=== PATIENT | female | born 1940 | race African-American/Black ===

== ENCOUNTER 2016-09-30 09:24 | Emergency (ER) | payer OTHER ==
[2016-09-30 09:36] VITALS: BMI 35.4
--- NOTE | 2016-09-30 09:53 | PDOC ---
History of Present Illness <Ronn Randle - Last Filed: 09/30/16 13:58> - General History Source: Patient, Family Exam Limitations: No Limitations - History of Present Illness Initial Comments: 09/30/16 11:36 The patient is a 75 year old female, with significant past medical history of diabetes, HTN, HLD, COPD, who presents today complaining of palpitations, difficulty breathing, and numbness and tingling in the bilateral arms and legs. This morning she experienced palpitations, dizziness, and difficulty breathing while sitting down for 15 to 20 minutes. This episode was witnessed by her daughter who states that it appeared as though she was trying to catch her breath. She also reports that she felt like there was a shaking inside her head. The patient had an MRI last year that resulted normal. She notes that her PCP is aware of these symptoms and is on Gabapentin for her headaches, and antibiotics for a sinus infection. The patient lives with the daughter. The patient has multiple past visits for bilateral arm tingling and numbness in the past; however she states that the symptoms have worsened since last night. Denies chest pain. Denies fever, chills, nausea, vomiting. Allergies: none reported Social Hx: No tobacco use. PCP- Dr. Janiya Raza Neurologist - Dr. Lorie Oilvas <Rishabh Ravissica - Last Filed: 09/30/16 14:10> - General Chief Complaint: Pain, Acute Stated Complaint: ABD PAIN, HEADACHE Time Seen by Provider: 09/30/16 09:52 Past History - Past Medical History Anemia: No Asthma: No Cancer: No Cardiac Disorders: Yes (palpatation 2011 negative) CVA: No COPD: Yes (bronchitis) CHF: No Dementia: No Diabetes: Yes (borderline) GI Disorders: No Disorders: No HTN: Yes Hypercholesterolemia: Yes Liver Disease: No Suicide Attempt (Hx): No Seizures: No Thyroid Disease: No - Surgical History Abdominal Surgery: Yes (06/2012 colectomy diverticilitis) Appendectomy: No Cardiac Surgery: No Cholecystectomy: No Lung Surgery: No Neurologic Surgery: No Orthopedic Surgery: No - Immunization History Immunization Up to Date: Yes (2013) - Psycho/Social/Smoking Cessation Hx Anxiety: No Suicidal Ideation: No Smoking Status: No Smoking History: Never smoked Have you smoked in the past 12 months: No Number of Cigarettes Smoked Daily: 0 Cigars Per Day: 0 Hx Alcohol Use: No Drug/Substance Use Hx: No Substance Use Type: None Hx Substance Use Treatment: No <Ronn Randle - Last Filed: 09/30/16 13:58> <Ping Ravi - Last Filed: 09/30/16 14:10> - Past Medical History Allergies/Adverse Reactions: Allergies Allergy/AdvReac Type Severity Reaction Status Date / Time No Known Drug Allergies Allergy Verified 09/30/16 09:35 Home Medications: Ambulatory Orders Amoxicillin/Potassium Clav [Amox-Clav 875-125 mg Tablet] 1 each PO BID 09/30/16 Furosemide [Lasix] 40 mg PO DAILY 09/30/16 Gabapentin [Neurontin] 100 mg PO BID 09/30/16 Lorazepam [Ativan] 0.5 mg PO TID #30 tablet MDD 3 09/30/16 Metoprolol Tartrate 50 mg PO BID 09/30/16 Review of Systems - Review of Systems Able to Perform ROS?: Yes Comments:: 09/30/16 11:36 GENERAL/CONSTITUTIONAL: No fever or chills. No weakness. HEAD, EYES, EARS, NOSE AND THROAT: No change in vision. No ear pain or discharge. No sore throat. CARDIOVASCULAR: +palpitations, difficulty breathing. No chest pain RESPIRATORY: No cough, wheezing, or hemoptysis. GASTROINTESTINAL: No nausea, vomiting, diarrhea or constipation. GENITOURINARY: No dysuria, frequency, or change in urination. MUSCULOSKELETAL: No joint or muscle swelling or pain. No neck or back pain. SKIN: No rash NEUROLOGIC: +numbness and tingling in the upper and lower extremities bilaterally.No headache, vertigo, loss of consciousness, or change in strength/ sensation. ENDOCRINE: No increased thirst. No abnormal weight change. HEMATOLOGIC/LYMPHATIC: No anemia, easy bleeding, or history of blood clots. ALLERGIC/IMMUNOLOGIC: No hives or skin allergy. <Ping Ravi - Last Filed: 09/30/16 14:10> *Physical Exam - Vital Signs Last Vital Signs Temp Pulse Resp BP Pulse Ox 98.0 F 83 18 149/66 95 09/30/16 09:32 09/30/16 09:32 09/30/16 09:32 09/30/16 09:32 09/30/16 09:32 <Ronn Randle - Last Filed: 09/30/16 13:58> - Vital Signs Last Vital Signs Temp Pulse Resp BP Pulse Ox 98.0 F 83 18 149/66 95 09/30/16 09:32 09/30/16 09:32 09/30/16 09:32 09/30/16 09:32 09/30/16 09:32 - Physical Exam Comments: 09/30/16 11:37 GENERAL: Awake, alert, and fully oriented, in no acute distress HEAD: No signs of trauma EYES: PERRLA, EOMI, sclera anicteric, conjunctiva clear ENT: Auricles normal inspection, hearing grossly normal, nares patent, oropharynx clear without exudates. Moist mucosa NECK: Normal ROM, supple, no lymphadenopathy, JVD, or masses LUNGS: Breath sounds equal, clear to auscultation bilaterally. No wheezes, and no crackles HEART: Regular rate and rhythm, normal S1 and S2, no murmurs, rubs or gallops ABDOMEN: Soft, nontender, normoactive bowel sounds. No guarding, no rebound. No masses EXTREMITIES: Mild pitting edema in her legs. Normal range of motion. No clubbing or cyanosis. No cords, erythema, or tenderness NEUROLOGICAL: Cranial nerves II through XII grossly intact. Normal speech, normal gait SKIN: Warm, Dry, normal turgor, no rashes or lesions noted. <Ping Ravi - Last Filed: 09/30/16 14:10> Heart Score/ECG Review #1 09/30/16 12:55 Sinus rhythm with 1st degree AV block Rate at 89 bpm <Ping Ravi - Last Filed: 09/30/16 14:10> ED Treatment Course - LABORATORY CBC & Chemistry Diagram: 09/30/16 10:20 09/30/16 10:20 <Ronn Randle - Last Filed: 09/30/16 13:58> - LABORATORY CBC & Chemistry Diagram: 09/30/16 10:20 09/30/16 10:20 - ADDITIONAL ORDERS Additional order review: Laboratory Results 09/30/16 10:20 Urine Color Colorless Urine Appearance Clear Urine pH 7.0 Urine Protein Negative Urine Glucose (UA) Negative Urine Ketones Negative Urine Blood Negative Urine Nitrite Negative Urine Bilirubin Negative Urine Urobilinogen Negative Ur Leukocyte Esterase Negative 09/30/16 10:20 RBC 4.66 MCV 90.2 MCHC 32.1 RDW 13.6 MPV 9.4 Neutrophils % 44.3 Lymphocytes % 39.3 Monocytes % 11.9 H Eosinophils % 3.8 Basophils % 0.7 - RADIOLOGY Radiograph Interpretation: 09/30/16 12:11 Chest Xray As reported by Dr. Juvencio Cristina Impression: no evidence of active pulmonary disease 09/30/16 14:02 US Bilateral legs As reviewed by Dr. Melba May Impression: No DVT seen in the lower extremities. Stevenson's cyst seen on the left. Chest CTA As reviewed by Dr. Mike Gee Impression: There is no evidence of a pulmonary embolus in the main pulmonary artery and its proximal branches, bilaterally. No enlarged mediastinal or hilar lymph nodes are identified. no acute lung disease present. Head CT without contrast as reviewed by Dr. Juvencio Cristina Impression: No evidence of acute intracranial hemorrhage, edema, midline shift, mass effect, or skull fracture.No CT evidence of acute territorial infarction. The visualized paranasal sinuses are not opacified. No evidence of otomastoiditis. <Ping Ravi - Last Filed: 09/30/16 14:10> *DC/Admit/Observation/Transfer - Discharge Dispostion Admit: No - Attestations Physician Attestion: 09/30/16 09:53 I, Dr. Ronn Randle, attest that this document has been prepared under my direction and personally reviewed by me in its entirety. I further attest, that it accurately reflects all work, treatment, procedures and medical decision -making performed by me. <Ronn Randle - Last Filed: 09/30/16 13:58> - Attestations Scribe Attestion: 09/30/16 11:39 Documentation prepared by HEVER Amado, acting as medical office assistant instructor for Ronn Randle DO. <Ping Ravi - Last Filed: 09/30/16 14:10> Diagnosis at time of Disposition: Palpitations, Leg swelling, Anxiety Abdominal pain Qualifiers: Abdominal location: generalized Qualified Code(s): R10.84 - Generalized abdominal pain Dyspnea Qualifiers: Dyspnea type: shortness of breath Qualified Code(s): R06.02 - Shortness of breath - Discharge Dispostion Disposition: HOME Condition at time of disposition: Good - Prescriptions Prescriptions: Lorazepam [Ativan] 0.5 mg PO TID #30 tablet MDD 3 - Patient Instructions Printed Discharge Instructions: DI for Anxiety -- Adult Additional Instructions: Mrs Pitt- I do not know exactly why you experienced the feeling that you could not get your breath this morning, but every test we did this morning is normal or negative. I am going to treat you for some anxiey with a small dose of ativan. Take it only if you begin to experience what you were experiencing earlier today that caused you to come to the ED for care today. Follow up with your doctor on Thursday. Return to us if worse or any new symptoms occur. Harshal- Dr. Ronn Randle
[2016-09-30 10:38] LABS: BASOPHIL 0.7 % (0-2.0); EOSINOPHIL 3.8 % (0-4.5); MCHC 32.1 g/dl (32.0-36.0); MEAN CELL VOLUME 90.2 fl (80-96); MEAN PLT VOLUME 9.4 fl (7.5-11.1); NEUTROPHILS 44.3 % (42.8-82.8); PLATELET COUNT 148 K/MM3 (134-434); RDW 13.6 % (11.6-15.6); WHITE BLOOD COUNT 5.2 K/mm3 (4.0-10.0)
[2016-09-30 10:49] LABS: URINE APPEARANCE CLEAR; URINE BILIRUBIN NEGATIVE (NEGATIVE); URINE BLOOD NEGATIVE (NEGATIVE); URINE COLOR COLORLESS; URINE GLUCOSE (UA) NEGATIVE (NEGATIVE); URINE KETONE NEGATIVE (NEGATIVE); URINE LEUK ESTERASE NEGATIVE (NEGATIVE); URINE NITRITE NEGATIVE (NEGATIVE); URINE PROTEIN NEGATIVE (NEGATIVE); URINE UROBILINOGEN NEGATIVE E.U./dl (0.2-1.0)
[2016-09-30 11:49] LABS: GLUCOSE,RANDOM 121 mg/dL (74-106)
[2016-09-30 11:50] LABS: ALBUMIN 3.7 g/dl (3.4-5.0); ANION GAP 7 (8-16); BILIRUBIN,TOTAL 0.5 mg/dL (0.2-1.0); CO2 29 mmol/L (21-32); COCKROFT - GAULT 69.6065; SGOT/AST 28 U/L (15-37); SGPT/ALT 32 U/L (12-78); TOT PROT 8.2 g/dl (6.4-8.2)
[2016-09-30 11:51] LABS: ALK PHOS 127 U/L (45-117); TROPONIN I < 0.02 ng/ml (0.00-0.05)
[2016-09-30 13:45] VITALS: BP 124/58; PULSE 78; TEMP 97.8
--- NOTE | 2016-09-30 15:50 | EKG ---
Test Reason : Blood Pressure : / mmHG Vent. Rate : 089 BPM Atrial Rate : 089 BPM P-R Int : 230 ms QRS Dur : 102 ms QT Int : 376 ms P-R-T Axes : 057 -32 060 degrees QTc Int : 457 ms SINUS RHYTHM WITH 1ST DEGREE A-V BLOCK LEFT AXIS DEVIATION MINIMAL VOLTAGE CRITERIA FOR LVH, MAY BE NORMAL VARIANT ABNORMAL ECG WHEN COMPARED WITH ECG OF 17-FEB-2016 07:26, VENT. RATE HAS INCREASED BY 38 BPM T WAVE VARIATION Confirmed by ANITA SPAULDING MD ([id number]) on 09/30/2016 3:50:16 PM Referred By: Confirmed By:ANITA SPAULDING MD
== END 2016-09-30 14:23 | disposition home or self-care (01) ==
LOC: JER 09:24
DX: R00.2 Palpitations (principal); M71.22 Synovial cyst of popliteal space [Baker], left knee; F41.9 Anxiety disorder, unspecified
CPT/HCPCS: 36415; 70450-TC; 71020-TC; 71275-TC; 80053; 81003; 82550; 82553; 83880; 84484; 85025; 93005; 93010; 93970-TC; 99283-25

== ENCOUNTER 2017-01-10 00:50 | Emergency (ER) | payer OTHER ==
[2017-01-10 00:56] VITALS: TEMP 98.4; BMI 35.4
--- NOTE | 2017-01-10 01:51 | PDOC ---
History of Present Illness - General History Source: Patient, Family Exam Limitations: No Limitations - History of Present Illness Initial Comments: 01/10/17 04:33 The patient is a 75 year old female, with significant past medical history of diabetes, hypertension, hyperlipidemia, and COPD, who presents today complaining of head shaking and tingling in her hands and feet bilaterally this evening. The patient has multiple visits for a similar complaint. Her daughter explains that this evening when the patient was sleeping, she noticed her head shaking back and forth more than usual. The patient states that when this shake occurs she feels tingling in her hands and feet. She has no other complaints at this time. Denies fever, chills, nausea, vomiting. Denies headache, changes in vision. Allergies: none reported Social Hx: No tobacco use. PCP: Dr. Janiya Raza [phone] Neurologist: [phone] <Ping Ravi - Last Filed: 01/10/17 04:33> <Diana Burton - Last Filed: 01/10/17 06:08> - General Chief Complaint: Lightheaded Stated Complaint: CRAMPING,HANDS/FEET,PALPITATIONS Time Seen by Provider: 01/10/17 01:15 Past History <Ping Ravi - Last Filed: 01/10/17 04:33> - Past Medical History Anemia: No Asthma: No Cancer: No Cardiac Disorders: Yes (palpatation 2011 negative) CVA: No COPD: Yes (bronchitis) CHF: No Dementia: No Diabetes: Yes (borderline) GI Disorders: No Disorders: No HTN: Yes Hypercholesterolemia: Yes Liver Disease: No Suicide Attempt (Hx): No Seizures: No Thyroid Disease: No - Surgical History Abdominal Surgery: Yes (06/2012 colectomy diverticilitis) Appendectomy: No Cardiac Surgery: No Cholecystectomy: No Lung Surgery: No Neurologic Surgery: No Orthopedic Surgery: No - Immunization History Immunization Up to Date: Yes (2013) - Psycho/Social/Smoking Cessation Hx Anxiety: No Suicidal Ideation: No Smoking Status: No Smoking History: Never smoked Have you smoked in the past 12 months: No Number of Cigarettes Smoked Daily: 0 Cigars Per Day: 0 Hx Alcohol Use: No Drug/Substance Use Hx: No Substance Use Type: None Hx Substance Use Treatment: No <Diana Burton - Last Filed: 01/10/17 06:08> - Past Medical History Allergies/Adverse Reactions: Allergies Allergy/AdvReac Type Severity Reaction Status Date / Time No Known Drug Allergies Allergy Verified 01/10/17 00:57 Home Medications: Ambulatory Orders Amoxicillin/Potassium Clav [Amox-Clav 875-125 mg Tablet] 1 each PO BID 09/30/16 Furosemide [Lasix] 40 mg PO DAILY 09/30/16 Gabapentin [Neurontin] 100 mg PO BID 09/30/16 Lorazepam [Ativan] 0.5 mg PO TID #30 tablet [facility] 3 09/30/16 Metoprolol Tartrate 50 mg PO BID 09/30/16 Lorazepam [Ativan] 0.5 mg PO TID #15 tablet [facility] 3 01/10/17 Review of Systems - Review of Systems Able to Perform ROS?: Yes Comments:: 01/10/17 04:33 GENERAL/CONSTITUTIONAL: No fever or chills. No weakness. HEAD, EYES, EARS, NOSE AND THROAT: No change in vision. No ear pain or discharge. No sore throat. CARDIOVASCULAR: No chest pain or shortness of breath. RESPIRATORY: No cough, wheezing, or hemoptysis. GASTROINTESTINAL: No nausea, vomiting, diarrhea or constipation. GENITOURINARY: No dysuria, frequency, or change in urination. MUSCULOSKELETAL: No joint or muscle swelling or pain. No neck or back pain. SKIN: No rash NEUROLOGIC: +tingling in her hands and feet bilaterally. No headache, vertigo , loss of consciousness, or change in strength/sensation. ENDOCRINE: No increased thirst. No abnormal weight change. HEMATOLOGIC/LYMPHATIC: No anemia, easy bleeding, or history of blood clots. ALLERGIC/IMMUNOLOGIC: No hives or skin allergy. <Ping Ravi - Last Filed: 01/10/17 04:33> *Physical Exam - Vital Signs Last Vital Signs Temp Pulse Resp BP Pulse Ox 98.4 F 88 18 159/79 99 01/10/17 00:54 01/10/17 00:54 01/10/17 00:54 01/10/17 00:54 01/10/17 00:54 - Physical Exam Comments: 01/10/17 04:34 GENERAL: Awake, alert, and fully oriented, in no acute distress HEAD: No signs of trauma EYES: PERRLA, EOMI, sclera anicteric, conjunctiva clear ENT: Auricles normal inspection, hearing grossly normal, nares patent, oropharynx clear without exudates. Moist mucosa NECK: Normal ROM, supple, no lymphadenopathy, JVD, or masses LUNGS: Breath sounds equal, clear to auscultation bilaterally. No wheezes, and no crackles HEART: Regular rate and rhythm, normal S1 and S2, no murmurs, rubs or gallops ABDOMEN: Soft, nontender, normoactive bowel sounds. No guarding, no rebound. No masses EXTREMITIES: Normal range of motion, no edema. No clubbing or cyanosis. No cords, erythema, or tenderness NEUROLOGICAL: Cranial nerves II through XII grossly intact. Normal speech, normal gait SKIN: Warm, Dry, normal turgor, no rashes or lesions noted. <Ping Ravi - Last Filed: 01/10/17 04:33> - Vital Signs Last Vital Signs Temp Pulse Resp BP Pulse Ox 98.4 F 88 18 159/79 99 01/10/17 00:54 01/10/17 00:54 01/10/17 00:54 01/10/17 00:54 01/10/17 00:54 <Diana Burton - Last Filed: 01/10/17 06:08> ED Treatment Course - Medications Given in the ED: ED Medications Discontinued Medications Generic Name Dose Route Start Last Admin Trade Name Freq PRN Reason Stop Dose Admin Lorazepam 0.5 mg 01/10/17 02:01 01/10/17 02:49 Ativan - PO 01/10/17 02:02 0.5 mg ONCE ONE Administration <Ping Ravi - Last Filed: 01/10/17 04:33> Medical Decision Making - Medical Decision Making 01/10/17 06:07 Pt comes with multiple complaints and anxiety. Pt has normal sed rate and normal vitals and normal exam. We will teat with ativan PO , and she feels better. Pt was reassured and she was sent home. Follow with PMD and with neurologist Dee Dee. <Diana Burton - Last Filed: 01/10/17 06:08> *DC/Admit/Observation/Transfer - Attestations Scribe Attestion: 01/10/17 04:34 Documentation prepared by HEVER Amado, acting as medical assisting instructor for Diana Burton MD. <Ping Ravi - Last Filed: 01/10/17 04:33> <Diana Burton - Last Filed: 01/10/17 06:08> Diagnosis at time of Disposition: Anxiety - Prescriptions Prescriptions: Lorazepam [Ativan] 0.5 mg PO TID #15 tablet MDD 3 - Referrals Referrals: Janiya Raza MD [Primary Care Provider] -
[2017-01-10] MEDS ORDERED: LORazepam 0.5 MG TABLET PO ONE (02:01)
[2017-01-10 04:35] VITALS: BP 160/83; PULSE 69
--- NOTE | 2017-01-15 12:24 | EKG ---
Test Reason : Blood Pressure : / mmHG Vent. Rate : 082 BPM Atrial Rate : 082 BPM P-R Int : 242 ms QRS Dur : 104 ms QT Int : 388 ms P-R-T Axes : 071 -31 066 degrees QTc Int : 453 ms SINUS RHYTHM WITH 1ST DEGREE A-V BLOCK LEFT AXIS DEVIATION ABNORMAL ECG WHEN COMPARED WITH ECG OF 30-SEP-2016 09:40, NO SIGNIFICANT CHANGE WAS FOUND Confirmed by IRMA NASSAR, KENYETTA ([id number]) on 01/15/2017 12:23:32 PM Referred By: Confirmed By:KENYETTA SOLIS MD
== END 2017-01-10 04:35 | disposition home or self-care (01) ==
LOC: JER 00:50
DX: F41.9 Anxiety disorder, unspecified (principal); I10 Essential (primary) hypertension; E11.9 Type 2 diabetes mellitus without complications; E78.00 Pure hypercholesterolemia, unspecified; J44.9 Chronic obstructive pulmonary disease, unspecified
CPT/HCPCS: 36415; 85651; 93005; 93010; 99281-25

== ENCOUNTER 2017-07-13 22:02 | Emergency (ER) | payer OTHER ==
[2017-07-13 22:47] VITALS: BMI 35.4
[2017-07-14] MEDS ORDERED: SODIUM CHLORIDE 1,000 ML IV STA (00:56)
[2017-07-14] MEDS ORDERED: MECLIZINE HCL 25 MG TABLET (FP) PO ONE (00:58)
--- NOTE | 2017-07-14 01:02 | PDOC ---
History of Present Illness <Liseth Long - Last Filed: 07/14/17 00:59> - General History Source: Patient Exam Limitations: No Limitations - History of Present Illness Initial Comments: 07/14/17 01:44 The patient is a 76 year old female with a significant PMH of borderline diabetes, essential tremor on primidone, sinusitis, heart palpitations on metoprolol, and arthritis who presents to the emergency department after a pre- syncopal episode at approximately 9PM tonight. The patient reports she was eating when she suddenly experienced a rushing feeling across her forehead and up over the top of her head that lasted for approximately a minute. The patient notes she felt as if she was going to pass out prompting her to call her daughters and come to the ER. The patient states she has been feeling well since and is now reporting a mild headache. The patient reports she has seen a neurologist in the past for her essential tremors of the head but states her symptoms today were different. The patient endorses numbness and tingling in her hands at baseline -- unchanged. The patient denies any recent travel. The patient denies any history of heart attacks or stroke. The patient denies chest pain, shortness of breath, or changes in vision. Denies fever, chills, nausea, vomit, diarrhea and constipation. Denies dysuria, frequency, urgency and hematuria. Allergies: NKA Past surgical history: right knee replacement Social history: No reported alcohol, cigarette or drug use. PCP: Dr. Raza <Melissa Chino - Last Filed: 07/14/17 01:44> <Mateo Padgett - Last Filed: 07/14/17 08:16> - General Chief Complaint: Lightheaded Stated Complaint: DIZZINESS Time Seen by Provider: 07/13/17 23:41 Past History - Past Medical History Anemia: No Asthma: No Cancer: No Cardiac Disorders: Yes (palpatation 2011 negative) CVA: No COPD: Yes (bronchitis) CHF: No Dementia: No Diabetes: Yes (borderline) GI Disorders: No Disorders: No HTN: Yes Hypercholesterolemia: Yes Liver Disease: No Seizures: No Thyroid Disease: No - Surgical History Abdominal Surgery: Yes (06/2012 colectomy diverticilitis) Appendectomy: No Cardiac Surgery: No Cholecystectomy: No Lung Surgery: No Neurologic Surgery: No Orthopedic Surgery: No - Immunization History Immunization Up to Date: Yes (2013) - Suicide/Smoking/Psychosocial Hx Smoking Status: No Smoking History: Never smoked Have you smoked in the past 12 months: No Number of Cigarettes Smoked Daily: 0 Cigars Per Day: 0 Information on smoking cessation initiated: No Hx Alcohol Use: No Drug/Substance Use Hx: No Substance Use Type: None Hx Substance Use Treatment: No <Liseth Long - Last Filed: 07/14/17 00:59> <Melissa Chino - Last Filed: 07/14/17 01:44> <Mateo Padgett - Last Filed: 07/14/17 08:16> - Past Medical History Allergies/Adverse Reactions: Allergies Allergy/AdvReac Type Severity Reaction Status Date / Time No Known Drug Allergies Allergy Verified 07/13/17 22:40 Home Medications: Ambulatory Orders Furosemide [Lasix] 40 mg PO DAILY 09/30/16 Gabapentin [Neurontin] 100 mg PO TID 09/30/16 Lorazepam [Ativan] 0.5 mg PO TID #30 tablet MDD 3 09/30/16 Cephalexin Monohydrate [Keflex -] 500 mg PO BID #14 capsule 07/14/17 Primidone [Mysoline -] 50 mg PO HS 07/14/17 Review of Systems - Review of Systems Able to Perform ROS?: Yes Comments:: 07/14/17 01:44 See HPI. All other systems reviewed and unremarkable. <Melissa Chino - Last Filed: 07/14/17 01:44> *Physical Exam - Vital Signs Last Vital Signs Temp Pulse Resp BP Pulse Ox 98.0 F 76 19 145/58 98 07/13/17 22:40 07/13/17 22:40 07/13/17 22:40 07/13/17 22:40 07/13/17 22:40 <Liseth Long - Last Filed: 07/14/17 00:59> - Vital Signs Last Vital Signs Temp Pulse Resp BP Pulse Ox 98.0 F 76 19 145/58 98 07/13/17 22:40 07/13/17 22:40 07/13/17 22:40 07/13/17 22:40 07/13/17 22:40 - Physical Exam Comments: 07/14/17 01:45 GENERAL: Awake, alert, and fully oriented, in no acute distress HEENT: EOMI, DAVION MMM, OP WNL NECK: NCAT, no midline cervical tenderness CARDIOVASCULAR: RRR, nl s1/s2, no m/r/g LUNGS: CTABL, no w/r/r ABDOMEN: Soft, NTND EXTREMITIES: No edema, WWP, no rash NEURO: CN intact, no pronator drift, BUE 5/5 throughout, BLE 5/5 throughout, FNF intact, CONNOR intact, gait w/ limp 2/2 arthritis -- at baseline per pt and daughters. sensation grossly intact to light touch, no nystagmus. SKIN: Warm, Dry, normal turgor, no rashes or lesions noted. <Mleissa Chino - Last Filed: 07/14/17 01:44> - Vital Signs Last Vital Signs Temp Pulse Resp BP Pulse Ox 97.9 F 68 17 110/55 97 07/14/17 07:27 07/14/17 07:27 07/14/17 07:27 07/14/17 07:27 07/14/17 07:27 <Mateo Padgett - Last Filed: 07/14/17 08:16> ED Treatment Course - RADIOLOGY Radiology Studies Ordered: Category Date Time Status CHEST PA & LAT [RAD] Stat Radiology 07/14/17 00:58 Ordered <Liseth Long - Last Filed: 07/14/17 00:59> - ADDITIONAL ORDERS Additional order review: Laboratory Results 07/14/17 01:14 Urine Color Ltyellow Urine Appearance Clear Urine pH 6.0 Ur Specific [place] 1.016 Urine Protein Negative Urine Glucose (UA) Negative Urine Ketones Negative Urine Blood Negative Urine Nitrite Negative Urine Bilirubin Negative Urine Urobilinogen Negative Ur Leukocyte Esterase 2+ H - Medications Given in the ED: ED Medications Discontinued Medications Generic Name Dose Route Start Last Admin Trade Name Freq PRN Reason Stop Dose Admin Meclizine HCl 25 mg 07/14/17 00:58 07/14/17 01:24 Antivert - PO 07/14/17 00:59 25 mg ONCE ONE Administration <Melissa Chino - Last Filed: 07/14/17 01:44> - LABORATORY CBC & Chemistry Diagram: 07/14/17 02:21 03/06/18 02:21 - ADDITIONAL ORDERS Additional order review: Laboratory Results 07/14/17 07/14/17 07/14/17 05:39 02:21 02:21 PT with INR 12.30 H INR 1.09 PTT (Actin FS) 28.6 Sodium 142 Potassium 4.1 Chloride 106 Carbon Dioxide 26 Anion Gap 10 BUN 21 H Creatinine 0.9 Random Glucose 86 Calcium 9.1 Creatine Kinase 127 Troponin I < 0.02 < 0.02 Urine Color Urine Appearance Urine pH Ur Specific [place] Urine Protein Urine Glucose (UA) Urine Ketones Urine Blood Urine Nitrite Urine Bilirubin Urine Urobilinogen Ur Leukocyte Esterase Urine WBC (Auto) Urine RBC (Auto) Ur Epithelial Cells 07/14/17 01:14 PT with INR INR PTT (Actin FS) Sodium Potassium Chloride Carbon Dioxide Anion Gap BUN Creatinine Random Glucose Calcium Creatine Kinase Troponin I Urine Color Ltyellow Urine Appearance Clear Urine pH 6.0 Ur Specific [place] 1.016 Urine Protein Negative Urine Glucose (UA) Negative Urine Ketones Negative Urine Blood Negative Urine Nitrite Negative Urine Bilirubin Negative Urine Urobilinogen Negative Ur Leukocyte Esterase 2+ H Urine WBC (Auto) 12 Urine RBC (Auto) 1 Ur Epithelial Cells Rare 07/14/17 02:21 RBC 4.54 MCV 90.5 MCHC 32.6 RDW 13.5 MPV 9.8 Neutrophils % 51.6 Lymphocytes % 33.0 Monocytes % 11.4 H Eosinophils % 3.0 Basophils % 1.0 - Medications Given in the ED: ED Medications Discontinued Medications Generic Name Dose Route Start Last Admin Trade Name Freq PRN Reason Stop Dose Admin Cephalexin HCl 500 mg 07/14/17 06:58 07/14/17 07:16 Keflex - PO 07/14/17 06:59 500 mg ONCE ONE Administration Sodium Chloride 1,000 mls @ 1,000 mls/hr 07/14/17 00:56 07/14/17 02:16 Normal Saline - IV 07/14/17 01:55 1,000 mls/hr ASDIR STA Administration Meclizine HCl 25 mg 07/14/17 00:58 07/14/17 01:24 Antivert - PO 07/14/17 00:59 25 mg ONCE ONE Administration <Mateo Padgett - Last Filed: 07/14/17 08:16> Medical Decision Making - Medical Decision Making 07/14/17 01:00 76yoF hx of sinusitis, "palpitations," essential tremor on primidone presnets w / episode of near-syncope described as a "rushing feeling" across for[place] and up over top of head x few minutes while sitting eatind around 9pm. Feels well since episode, did not note any other associated symptoms at time of episode and has been in [facility] prior. - labs - ekg - FS - cxr - UA - ivf, meclizine - reeval. Possible 2tn r/o. <Liseth Long - Last Filed: 07/14/17 00:59> - Medical Decision Making 07/14/17 08:13 received signout that this patient had trop negative x2 and was going to be discharged on cephalexin. pt remains active, discussed again with overnight attending - will prescribe cephalexin and discharge as per plan. Pt feels well, vitals normal. <Mateo Padgett - Last Filed: 07/14/17 08:16> *DC/Admit/Observation/Transfer <Liseth Long - Last Filed: 07/14/17 00:59> - Attestations Scribe Attestion: 07/14/17 01:45 Documentation prepared by Melissa Chino, acting as medical claims examiner for Liseth Long MD. <Melissa Chino - Last Filed: 07/14/17 01:44> <Mateo Padgett - Last Filed: 07/14/17 08:16> Diagnosis at time of Disposition: UTI (urinary tract infection) Qualifiers: Urinary tract infection type: acute cystitis Hematuria presence: without hematuria Qualified Code(s): N30.00 - Acute cystitis without hematuria - Discharge Dispostion Disposition: HOME Condition at time of disposition: Stable - Prescriptions Prescriptions: Cephalexin Monohydrate [Keflex -] 500 mg PO BID #14 capsule - Referrals Referrals: Janiya Raza MD [Primary Care Provider] - - Patient Instructions Printed Discharge Instructions: DI for Urinary Tract Infection (UTI) Additional Instructions: Activity as tolerated. Stay hydrated. Blood tests and a chest xray showed no acute pathology. A urine test shows evidence of a urine infection. Take cephalexin as prescribed as an antibiotic. Continue your medications as previously prescribed by your physician. You should follow up with your primary doctor as soon as possible regarding today's emergency department visit. Return to the emergency department for any new or concerning symptoms, particularly persistent or worsening symptoms, fevers or chills, difficulty urinating. - Post Discharge Activity
[2017-07-14] MEDS ORDERED: MECLIZINE HCL 25 MG TABLET (FP) ONE (01:22)
[2017-07-14 01:32] LABS: URINE APPEARANCE CLEAR; URINE BILIRUBIN NEGATIVE (NEGATIVE); URINE BLOOD NEGATIVE (NEGATIVE); URINE COLOR LTYELLOW; URINE GLUCOSE (UA) NEGATIVE (NEGATIVE); URINE KETONE NEGATIVE (NEGATIVE); URINE NITRITE NEGATIVE (NEGATIVE); URINE PROTEIN NEGATIVE (NEGATIVE); URINE UROBILINOGEN NEGATIVE mg/dL (0.2-1.0)
[2017-07-14 01:33] LABS: URINE LEUK ESTERASE 2+ (NEGATIVE)
[2017-07-14 01:44] LABS: EPI CELLS RARE /HPF (FEW)
[2017-07-14 02:41] LABS: HEMATOCRIT 41.1 % (32.4-45.2); HEMOGLOBIN 13.4 GM/dL (10.7-15.3); MCH 29.5 pg (25.7-33.7); MCHC 32.6 g/dl (32.0-36.0); MEAN CELL VOLUME 90.5 fl (80-96); MEAN PLT VOLUME 9.8 fl (7.5-11.1); MONO % 11.4 % (3.8-10.2); NEUT % 51.6 % (42.8-82.8); PLATELET COUNT 170 K/MM3 (134-434); RBC 4.54 M/mm3 (3.60-5.2); RDW 13.5 % (11.6-15.6); WHITE BLOOD COUNT 5.9 K/mm3 (4.0-10.0)
[2017-07-14 02:55] LABS: INR 1.09 (0.82-1.09); PROTHROMBIN TIME (PATIENT) 12.3 SEC (9.98-11.88)
[2017-07-14 02:58] LABS: ACTIVATED PTT 28.6 SECONDS (26.9-34.4)
[2017-07-14 03:16] LABS: ANION GAP 10 (8-16); BLOOD UREA NITROGEN 21 mg/dL (7-18); CALCIUM 9.1 mg/dL (8.5-10.1); CHLORIDE 106 mmol/L (98-107); CO2 26 mmol/L (21-32); CREATININE 0.9 mg/dL (0.55-1.02); GLUCOSE,RANDOM 86 mg/dL (74-106); POTASSIUM 4.1 mmol/L (3.5-5.1); SODIUM 142 mmol/L (136-145)
[2017-07-14] MEDS ORDERED: CEPHALEXIN MONOHYDRATE 500 MG CAPSULE (UD) PO ONE (06:58)
[2017-07-14] MEDS ORDERED: CEPHALEXIN MONOHYDRATE 250 MG CAPSULE (FP) ONE (07:14)
[2017-07-14 07:29] VITALS: BP 110/55; PULSE 68; TEMP 97.9
--- NOTE | 2017-07-14 14:15 | EKG ---
Test Reason : Blood Pressure : / mmHG Vent. Rate : 071 BPM Atrial Rate : 071 BPM P-R Int : 220 ms QRS Dur : 094 ms QT Int : 418 ms P-R-T Axes : 060 -34 040 degrees QTc Int : 454 ms SINUS RHYTHM WITH 1ST DEGREE A-V BLOCK LEFT AXIS DEVIATION ABNORMAL ECG WHEN COMPARED WITH ECG OF 10-JAN-2017 01:10, NO SIGNIFICANT CHANGE WAS FOUND Confirmed by MD Riley, Jose ([id number]) on 07/14/2017 2:15:41 PM Referred By: Confirmed By:Jose Lin MD
== END 2017-07-14 08:29 | disposition home or self-care (01) ==
LOC: JER 22:02
PROC: 3E0337Z Introduction of Electrolytic and Water Balance Substance into Peripheral Vein, Percutaneous Approach (ICD-10-PCS; principal; 2017-07-13)
DX: N30.00 Acute cystitis without hematuria (principal); I10 Essential (primary) hypertension; E78.00 Pure hypercholesterolemia, unspecified; R73.03 Prediabetes; R00.2 Palpitations; M19.90 Unspecified osteoarthritis, unspecified site; G25.0 Essential tremor
CPT/HCPCS: 36415; 71046-TC-FY; 80048; 81003; 81015; 82550; 84484; 85025; 85610; 85730; 93005; 93010; 99284-25

== ENCOUNTER 2018-02-26 07:08 | Emergency (ER) | payer OTHER ==
[2018-02-26 07:51] VITALS: TEMP 98; BMI 35.4
--- NOTE | 2018-02-26 08:36 | PDOC ---
History of Present Illness <Kay Berg - Last Filed: 02/26/18 12:44> - History of Present Illness Initial Comments: 77yo F with PMH of headache and palpitations. Patient endorses regular headache but has presented to the ED because these are more severe. She says that she has taken gabapentin for her headache with little relief. She has noticed head shaking which seems consistent with her essential tremor. Patient also endorses bilateral upper extremity numbness and tingling which she attributes to her carpal tunnel. She has urinary frequency and has had UTIs in the past, but denies dysuria. She reports feeling heart palpitations. No history of abnormal heart rhythm. No recent falls, LOC, nausea or vomiting. <Kay Feliciano - Last Filed: 02/28/18 01:22> - General Chief Complaint: Headache Stated Complaint: PALPITATIONS,DIZZINESS Time Seen by Provider: 02/26/18 08:36 Past History <Kay Berg - Last Filed: 02/26/18 12:44> - Past Medical History Anemia: No Asthma: No Cancer: No Cardiac Disorders: Yes (palpatation 2011 negative) CVA: No COPD: Yes (bronchitis) CHF: No Dementia: No Diabetes: Yes (borderline) GI Disorders: No Disorders: No HTN: Yes Hypercholesterolemia: Yes Liver Disease: No Seizures: No Thyroid Disease: No Other medical history: sinusitis - Surgical History Abdominal Surgery: Yes (06/2012 colectomy diverticilitis) Appendectomy: No Cardiac Surgery: No Cholecystectomy: No Lung Surgery: No Neurologic Surgery: No Orthopedic Surgery: No - Immunization History Immunization Up to Date: Yes (2013) - Suicide/Smoking/Psychosocial Hx Smoking Status: No Smoking History: Never smoked Have you smoked in the past 12 months: No Number of Cigarettes Smoked Daily: 0 Cigars Per Day: 0 Hx Alcohol Use: No Drug/Substance Use Hx: No Substance Use Type: None Hx Substance Use Treatment: No <Kay Feliciano Last Filed: 02/28/18 01:22> - Past Medical History Allergies/Adverse Reactions: Allergies Allergy/AdvReac Type Severity Reaction Status Date / Time No Known Drug Allergies Allergy Verified 02/26/18 07:29 Home Medications: Ambulatory Orders Furosemide [Lasix] 40 mg PO DAILY 09/30/16 Gabapentin [Neurontin] 100 mg PO TID 09/30/16 Aspirin 81 mg PO DAILY 02/26/18 Budesonide/Formeterol Fumarate [SYMBICORT 160/4.5mcg -] 1 inh PO DAILY 02/26/18 Metoprolol Succinate 50 mg PO BID 02/26/18 Review of Systems - Review of Systems Comments:: Constitutional: no fever, no chills HEENT: no throat pain, no dysphagia Cardiovascular: no chest pain, +palpitations Respiratory: no cough, no shortness of breath Gastrointestinal: no abdominal pain, no nausea, no vomiting Genitourinary: no dysuria, +frequency Musculoskeletal: no myalgia, no arthralgia Skin: no rash, no itching Neurologic: +headache, +lightheaded <Kay Feliciano - Last Filed: 02/28/18 01:22> *Physical Exam - Vital Signs Last Vital Signs Temp Pulse Resp BP Pulse Ox 98.0 F 57 L 18 161/60 99 02/26/18 07:29 02/26/18 07:29 02/26/18 07:29 02/26/18 07:29 02/26/18 09:05 <Kay Berg - Last Filed: 02/26/18 12:44> - Vital Signs Last Vital Signs Temp Pulse Resp BP Pulse Ox 98.0 F 57 L 18 161/60 97 02/26/18 07:29 02/26/18 07:29 02/26/18 07:29 02/26/18 07:29 02/26/18 07:29 - Physical Exam Comments: General: Awake, alert, and fully oriented, in no acute distress Head: no signs of trauma Eyes: EOMI, sclera anicteric ENT: Moist mucus membranes Neck: Normal ROM, supple Lungs: Lungs clear, Normal breath sounds Cardio: Regular rhythm, S1 and S2 present Abdomen: Soft, nontender. No guarding, no rebound, no masses Extremities: Normal range of motion, Distal pulses present SKIN: Warm, Dry, normal turgor Neurologic: Cranial nerves II through XII grossly intact. Normal speech <Kay Feliciano Last Filed: 02/28/18 01:22> ED Treatment Course - LABORATORY CBC & Chemistry Diagram: 02/26/18 10:20 02/26/18 10:20 - ADDITIONAL ORDERS Additional order review: Laboratory Results 02/26/18 02/26/18 10:20 10:20 Sodium 142 Potassium 4.4 Chloride 108 H Carbon Dioxide 28 Anion Gap 6 L BUN 17 Creatinine 0.8 Creat Clearance w eGFR > 60 Random Glucose 80 Calcium 9.8 Total Bilirubin 0.6 AST 20 ALT 27 Alkaline Phosphatase 134 H Troponin I < 0.02 Total Protein 8.4 H Albumin 3.8 Urine Color Straw Urine Appearance Clear Urine pH 7.0 Ur Specific [place] 1.006 L Urine Protein Negative Urine Glucose (UA) Negative Urine Ketones Negative Urine Blood 1+ H Urine Nitrite Negative Urine Bilirubin Negative Urine Urobilinogen Negative Ur Leukocyte Esterase Trace Urine WBC (Auto) 1 Urine RBC (Auto) <1 Ur Epithelial Cells Rare 02/26/18 10:20 RBC 4.93 MCV 81.8 MCHC 31.6 L RDW 21.0 H MPV 9.7 Neutrophils % 52.7 Lymphocytes % 31.1 Monocytes % 9.8 Eosinophils % 4.8 H Basophils % 1.6 - Medications Given in the ED: ED Medications Discontinued Medications Generic Name Dose Route Start Last Admin Trade Name Flori PRN Reason Stop Dose Admin Acetaminophen 1,000 mg 02/26/18 10:15 02/26/18 11:35 Ofirmev Injection - IVPB 02/26/18 10:16 1,000 mg ONCE ONE Administration Metoclopramide HCl 10 mg 02/26/18 10:15 02/26/18 11:35 Reglan Injection - IVPUSH 02/26/18 10:16 10 mg ONCE ONE Administration <Kay Berg - Last Filed: 02/26/18 12:44> - LABORATORY CBC & Chemistry Diagram: 02/26/18 10:20 02/26/18 10:20 <Kay Feliciano - Last Filed: 02/28/18 01:22> Medical Decision Making - Medical Decision Making Patient not present at bedside 02/26/18 08:43 77yo F with PMH of headache and palpitations. -EKG, rate 51, QTc 400, first degree AV block -Tylenol 1g, Reglan 10mg -CT head negative -Discharged. Patient amenable to plan. <Kay Feliciano - Last Filed: 02/28/18 01:22> *DC/Admit/Observation/Transfer - Discharge Dispostion Decision to Admit order: No <Kay Berg - Last Filed: 02/26/18 12:44> <Kay Feliciano - Last Filed: 02/28/18 01:22> Diagnosis at time of Disposition: Palpitations Headache Qualifiers: Headache type: unspecified Headache chronicity pattern: unspecified pattern Intractability: not intractable Qualified Code(s): R51 - Headache - Discharge Dispostion Disposition: HOME Condition at time of disposition: Stable - Referrals Referrals: Janiya Raza MD [Primary Care Provider] - - Patient Instructions Printed Discharge Instructions: DI for Headache, DI for Palpitations - Post Discharge Activity
--- NOTE | 2018-02-26 10:10 | PDOC ---
Attending Attestation - Resident Resident Name: Kay Feliciano - ED Attending Attestation I have performed the following: I have examined & evaluated the patient, The case was reviewed & discussed with the resident, I agree w/resident's findings & plan, Exceptions are as noted - HPI HPI: 77 yo F history COPD, DM, HTN, HL presents with headache and palpitations. She has had headaches in the past, however, today the headache was more intense, prompting her to seek evaluation. She has taken gabapentin in the past. She states she has BUE numbness and tingling that is new. +Urinary frequency but no dysuria, no hematuria. She has also had palpitations in the past, similar to today. No new weakness, numbness, LOC, N/V, neck pain. - Physicial Exam PE: GENERAL: Awake, alert, and fully oriented, in no acute distress HEAD: No signs of trauma EYES: PERRLA, EOMI, sclera anicteric, conjunctiva clear ENT: Auricles normal inspection, hearing grossly normal, nares patent, oropharynx clear without exudates. Moist mucosa NECK: Normal ROM, supple, no lymphadenopathy, JVD, or masses LUNGS: Breath sounds equal, clear to auscultation bilaterally. No wheezes, and no crackles HEART: Regular rate and rhythm, normal S1 and S2, no murmurs, rubs or gallops ABDOMEN: Soft, nontender, normoactive bowel sounds. No guarding, no rebound. No masses EXTREMITIES: Normal range of motion, no edema. No clubbing or cyanosis. No cords, erythema, or tenderness NEUROLOGICAL: Cranial nerves II through XII grossly intact. Normal speech. Motor and sensation intact. SKIN: Warm, Dry, normal turgor, no rashes or lesions noted. - Medical Decision Making CTH obtained based on nature of complaint- change in prior headache pattern. No acute findings. Labs wnl, and patient has history of palpitations in past. Stable for DC home.
[2018-02-26] MEDS ORDERED: ACETAMINOPHEN 1000 MG/100 ML VIAL (NON FORMULARY) IVPB ONE (10:15)
[2018-02-26] MEDS ORDERED: METOCLOPRAMIDE HCL INJECTION 10 MG/2 ML VIAL IVPUSH ONE (10:15)
[2018-02-26 10:40] LABS: BASO % 1.6 % (0-2.0); EOS % 4.8 % (0-4.5); HEMATOCRIT 40.3 % (32.4-45.2); HEMOGLOBIN 12.7 GM/dL (10.7-15.3); LYMPH % 31.1 % (8-40); MCH 25.8 pg (25.7-33.7); MCHC 31.6 g/dl (32.0-36.0); MEAN CELL VOLUME 81.8 fl (80-96); MEAN PLT VOLUME 9.7 fl (7.5-11.1); MONO % 9.8 % (3.8-10.2); NEUT % 52.7 % (42.8-82.8); PLATELET COUNT 195 K/MM3 (134-434); RBC 4.93 M/mm3 (3.60-5.2)
[2018-02-26 11:01] LABS: ALBUMIN 3.8 g/dl (3.4-5.0); ALK PHOS 134 U/L (45-117); ANION GAP 6 MMOL/L (8-16); BILIRUBIN,TOTAL 0.6 mg/dL (0.2-1); BLOOD UREA NITROGEN 17 mg/dL (7-18); CALCIUM 9.8 mg/dL (8.5-10.1); CHLORIDE 108 mmol/L (98-107); CO2 28 mmol/L (21-32); CREATININE 0.8 mg/dL (0.55-1.3); GLUCOSE,RANDOM 80 mg/dL (74-106); POTASSIUM 4.4 mmol/L (3.5-5.1); SGOT/AST 20 U/L (15-37); SGPT/ALT 27 U/L (13-61); SODIUM 142 mmol/L (136-145); TOT PROT 8.4 g/dl (6.4-8.2)
[2018-02-26 11:14] LABS: URINE APPEARANCE CLEAR; URINE BILIRUBIN NEGATIVE (<2.0 mg/dL); URINE COLOR STRAW; URINE GLUCOSE (UA) NEGATIVE (NEGATIVE); URINE KETONE NEGATIVE (NEGATIVE); URINE LEUK ESTERASE TRACE (NEGATIVE); URINE NITRITE NEGATIVE (NEGATIVE); URINE PROTEIN NEGATIVE (NEGATIVE); URINE UROBILINOGEN NEGATIVE mg/dL (0.2-1.0)
[2018-02-26 11:20] LABS: EPI CELLS RARE /HPF (FEW)
[2018-02-26] MEDS ORDERED: ACETAMINOPHEN INJECTION 100 ML IVPB ONE (11:28)
[2018-02-26] MEDS ORDERED: METOCLOPRAMIDE HCL INJECTION 10 MG/2 ML VIAL ONE (11:28)
[2018-02-26 13:09] VITALS: BP 148/84; PULSE 74
[2018-02-26 14:57] LABS: ANISOCYTOSIS 2+; MACROCYTOSIS 0; PLATELET ESTIMATE NORMAL
--- NOTE | 2018-02-27 18:06 | EKG ---
Test Reason : Blood Pressure : / mmHG Vent. Rate : 051 BPM Atrial Rate : 051 BPM P-R Int : 222 ms QRS Dur : 094 ms QT Int : 434 ms P-R-T Axes : 043 -44 -06 degrees QTc Int : 400 ms SINUS BRADYCARDIA WITH SINUS ARRHYTHMIA WITH 1ST DEGREE A-V BLOCK LEFT AXIS DEVIATION MINIMAL VOLTAGE CRITERIA FOR LVH, MAY BE NORMAL VARIANT NONSPECIFIC T WAVE ABNORMALITY ABNORMAL ECG WHEN COMPARED WITH ECG OF 14-JUL-2017 01:25, T WAVE INVERSION NOW EVIDENT IN INFERIOR LEADS NONSPECIFIC T WAVE ABNORMALITY, WORSE IN ANTEROLATERAL LEADS QT HAS SHORTENED Confirmed by KENYETTA SOLIS MD ([id number]) on 02/27/2018 6:05:31 PM Referred By: Confirmed By:KENYETTA SOLIS MD
== END 2018-02-26 12:50 | disposition home or self-care (01) ==
LOC: JER 07:08
PROC: 3E033NZ Introduction of Analgesics, Hypnotics, Sedatives into Peripheral Vein, Percutaneous Approach (ICD-10-PCS; principal; 2018-02-26)
PROC: 3E033GC Introduction of Other Therapeutic Substance into Peripheral Vein, Percutaneous Approach (ICD-10-PCS; 2018-02-26)
DX: R51 Headache (principal); R00.2 Palpitations; I10 Essential (primary) hypertension; E11.9 Type 2 diabetes mellitus without complications; Z87.19 Personal history of other diseases of the digestive system; Z90.49 Acquired absence of other specified parts of digestive tract
CPT/HCPCS: 36415; 70450-TC; 80053; 81003; 81015; 84443; 84484; 85025; 87086; 93005; 93010; 96374; 96375; 99282-25; J0131

== ENCOUNTER 2018-07-29 01:36 | Emergency (ER) | payer OTHER ==
--- NOTE | 2018-07-29 02:41 | PDOC ---
History of Present Illness - General Chief Complaint: Pain Stated Complaint: NUMBNESS,TINGLING Time Seen by Provider: 07/29/18 02:39 History Source: Patient Past History - Past Medical History Allergies/Adverse Reactions: Allergies Allergy/AdvReac Type Severity Reaction Status Date / Time No Known Drug Allergies Allergy Verified 02/26/18 07:29 Home Medications: Ambulatory Orders Furosemide [Lasix] 40 mg PO DAILY 09/30/16 Gabapentin [Neurontin] 100 mg PO TID 09/30/16 Aspirin 81 mg PO DAILY 02/26/18 Budesonide/Formeterol Fumarate [SYMBICORT 160/4.5mcg -] 1 inh PO DAILY 02/26/18 Metoprolol Succinate 50 mg PO BID 02/26/18 Anemia: No Asthma: No Cancer: No Cardiac Disorders: Yes (palpatation 2011 negative) CVA: No COPD: Yes (bronchitis) CHF: No Dementia: No Diabetes: Yes (borderline) GI Disorders: No Disorders: No HTN: Yes Hypercholesterolemia: Yes Liver Disease: No Seizures: No Thyroid Disease: No - Surgical History Abdominal Surgery: Yes (06/2012 colectomy diverticilitis) Appendectomy: No Cardiac Surgery: No Cholecystectomy: No Lung Surgery: No Neurologic Surgery: No Orthopedic Surgery: No - Immunization History Immunization Up to Date: Yes (2013) - Suicide/Smoking/Psychosocial Hx Smoking Status: No Smoking History: Never smoked Have you smoked in the past 12 months: No Number of Cigarettes Smoked Daily: 0 Cigars Per Day: 0 Hx Alcohol Use: No Drug/Substance Use Hx: No Substance Use Type: None Hx Substance Use Treatment: No *DC/Admit/Observation/Transfer - Discharge Dispostion Condition at time of disposition: Fair - Referrals Referrals: Janiya Raza MD [Primary Care Provider] - - Patient Instructions - Post Discharge Activity
[2018-07-29 02:43] VITALS: BP 156/61; PULSE 66; TEMP 98.2; BMI 35.4
--- NOTE | 2018-07-29 02:46 | PDOC ---
Attending Attestation - Resident Resident Name: Michael Rod - ED Attending Attestation I have performed the following: I have examined & evaluated the patient, The case was reviewed & discussed with the resident, I agree w/resident's findings & plan - HPI HPI: 07/29/18 04:25 77-year-old female with intermittent paresthesias involving the arms and legs as well as the head, patient states all 3 happened at the same time since she came in for evaluation. The symptoms have been present for several months. She has been seen by a neurologist in the past with an MRI and was told everything was normal. Patient placed on gabapentin for a nonspecific neurological problem. - Physicial Exam PE: 07/29/18 04:27 Agree with resident's exam - Medical Decision Making 07/29/18 04:28 77-year-old female with intermittent paresthesias Labs, CT scan Plan for DC with outpatient neurology follow-up
--- NOTE | 2018-07-29 04:06 | PDOC ---
History of Present Illness - General Chief Complaint: Pain Stated Complaint: NUMBNESS,TINGLING Time Seen by Provider: 07/29/18 02:39 - History of Present Illness Initial Comments: The pt is a 77F w/ a history of HTN, tremor, and pre-diabetes who presents for evaluation of BUE/BLE/head numbness/tingling with associated PENA. She reports months of intermittent tingling that usually does not occur in all areas at the same time. Tonight she states she woke up with a PENA and tingling the same quality as she has experienced previously but all were occurring at the same time. Describes PENA as b/l, throbbing, and has since resolved. In the ED, pt denies any current symptoms. Denies fevers/chills, chest pain, SOB, abdominal pain, N/V/C/D, dysuria, hematuria 07/29/18 03:58 Past History - Past Medical History Allergies/Adverse Reactions: Allergies Allergy/AdvReac Type Severity Reaction Status Date / Time No Known Drug Allergies Allergy Verified 07/29/18 02:43 Home Medications: Ambulatory Orders Furosemide [Lasix] 40 mg PO DAILY 09/30/16 Gabapentin [Neurontin] 100 mg PO TID 09/30/16 Aspirin 81 mg PO DAILY 02/26/18 Budesonide/Formeterol Fumarate [SYMBICORT 160/4.5mcg -] 1 inh PO DAILY 02/26/18 Metoprolol Succinate 50 mg PO BID 02/26/18 Anemia: No Asthma: No Cancer: No Cardiac Disorders: Yes (palpatation 2011 negative) CVA: No COPD: Yes (bronchitis) CHF: No Dementia: No Diabetes: Yes (borderline) GI Disorders: No Disorders: No HTN: Yes Hypercholesterolemia: Yes Liver Disease: No Seizures: No Thyroid Disease: No - Surgical History Abdominal Surgery: Yes (06/2012 colectomy diverticilitis) Appendectomy: No Cardiac Surgery: No Cholecystectomy: No Lung Surgery: No Neurologic Surgery: No Orthopedic Surgery: No - Immunization History Immunization Up to Date: Yes (2013) - Suicide/Smoking/Psychosocial Hx Smoking Status: No Smoking History: Never smoked Have you smoked in the past 12 months: No Number of Cigarettes Smoked Daily: 0 Cigars Per Day: 0 Information on smoking cessation initiated: No Hx Alcohol Use: No Drug/Substance Use Hx: No Substance Use Type: None Hx Substance Use Treatment: No Review of Systems - Review of Systems Able to Perform ROS?: Yes Comments:: GENERAL/CONSTITUTIONAL: No fever or chills. No weakness HEAD, EYES, EARS, NOSE AND THROAT: No change in vision. No ear pain or discharge. No sore throat CARDIOVASCULAR: No chest pain or shortness of breath RESPIRATORY: Denies cough, hemoptysis GASTROINTESTINAL: No nausea, vomiting, diarrhea or constipation GENITOURINARY: No dysuria, frequency, or change in urination MUSCULOSKELETAL: No joint or muscle swelling or pain. No neck or back pain SKIN: No rash NEUROLOGIC: No vertigo, loss of consciousness ENDOCRINE: No increased thirst. No abnormal weight change HEMATOLOGIC/LYMPHATIC: No anemia, easy bleeding, or history of blood clots ALLERGIC/IMMUNOLOGIC: No hives or skin allergy 07/29/18 04:13 Is the patient limited [place] proficient: No *Physical Exam - Vital Signs Last Vital Signs Temp Pulse Resp BP Pulse Ox 98.2 F 66 18 156/61 98 07/29/18 01:36 07/29/18 01:36 07/29/18 01:36 07/29/18 01:36 07/29/18 01:36 - Physical Exam Comments: GENERAL: Awake, alert, and oriented to person/place/time, in no acute distress HEAD: No signs of trauma, normocephalic, atraumatic EYES: PERRLA, EOMI, sclera anicteric, conjunctiva clear ENT: Hearing grossly normal, nares patent, oropharynx clear without exudates. Moist mucosa LUNGS: No distress, speaks full sentences, clear to auscultation bilaterally HEART: Regular rate and rhythm, normal S1 and S2, no murmurs appreciated, peripheral pulses normal and equal bilaterally ABDOMEN: Soft, nontender, normoactive bowel sounds. No guarding, no rebound EXTREMITIES: Normal inspection, Normal range of motion, no edema. No clubbing or cyanosis NEUROLOGICAL: Cranial nerves II through XII grossly intact. Normal speech. Pt w / decreased sensation to light touch over ant/post R forearm. Strength 5/5 throughout SKIN: Warm, Dry 07/29/18 04:14 Moderate Sedation - Procedure Monitoring Vital Signs: Procedure Monitoring Vital Signs Temperature 98.2 F 07/29/18 01:36 Pulse Rate 66 07/29/18 01:36 Respiratory Rate 18 07/29/18 01:36 Blood Pressure 156/61 07/29/18 01:36 O2 Sat by Pulse Oximetry (%) 98 07/29/18 01:36 ED Treatment Course - LABORATORY CBC & Chemistry Diagram: 07/29/18 04:36 07/29/18 04:36 - RADIOLOGY Radiology Studies Ordered: Category Date Time Status HEAD CT WITHOUT CONTRAST [CT] Stat CT Scan 07/29/18 03:56 Ordered Medical Decision Making - Medical Decision Making The pt is a 77F w/ a history of HTN, pre-diabetes, and tremor who presents for evaluation of months of intermittent BUE/BLE/head paresthesias and PENA. Pt asymptomatic in ED ED Course CMP, CBC, Trop I ECG CT head 07/29/18 04:17 ECG w/ 1st degree AV block, HR 57, QTc 420 CT head w/o acute pathology Trop I neg No anemia No leukocytosis Lytes wnl No ANATOLIY 07/29/18 05:34 TSH elevated Plan for D/C w/ PCP f/u, pt made aware of elevated TSH Pt asymptomatic at time of D/C Discharge instructions and return precautions given Pt in agreement and verbalized understanding Dispo: home *DC/Admit/Observation/Transfer Diagnosis at time of Disposition: Paresthesia, Elevated TSH - Discharge Dispostion Disposition: HOME Condition at time of disposition: Stable Decision to Admit order: No - Referrals Referrals: Janiya Raza MD [Primary Care Provider] - Selvin Alexander DO [Staff Physician] - - Patient Instructions Printed Discharge Instructions: DI for Numbness/tingling Additional Instructions: You were seen in the Emergency Department for evaluation for paresthesias. Imaging was negative for acute findings. You labs were significant for elevated thyroid stimulating hormone. Review the handout provided at discharge. Follow up with your primary care physician and Neurologist within a week and be sure to bring up that you had an abnormal thyroid level. Return to the Emergency Department if you develop fevers/chills, vision changes, changes in strength/ sensation, vomiting, chest pain, trouble breathing, worsening symptoms, or any new/concerning symptoms. - Post Discharge Activity
[2018-07-29 04:52] LABS: HEMATOCRIT 39.7 % (32.4-45.2); HEMOGLOBIN 13.6 GM/dL (10.7-15.3); MCHC 34.4 g/dl (32.0-36.0); MEAN CELL VOLUME 90.1 fl (80-96); PLATELET COUNT 156 K/MM3 (134-434); RBC 4.41 M/mm3 (3.60-5.2); RDW 14.1 % (11.6-15.6); WHITE BLOOD COUNT 5.6 K/mm3 (4.0-10.0)
[2018-07-29 05:19] LABS: ALBUMIN 3.3 g/dl (3.4-5.0); ALK PHOS 114 U/L (45-117); ANION GAP 5 MMOL/L (8-16); BILIRUBIN,TOTAL 0.4 mg/dL (0.2-1); BLOOD UREA NITROGEN 23 mg/dL (7-18); CHLORIDE 109 mmol/L (98-107); CO2 26 mmol/L (21-32); CREATININE 0.9 mg/dL (0.55-1.3); GLUCOSE,RANDOM 93 mg/dL (74-106); PHOSPHOROUS 3.2 mg/dL (2.5-4.9); POTASSIUM 4.2 mmol/L (3.5-5.1); SGOT/AST 19 U/L (15-37); SGPT/ALT 23 U/L (13-61); SODIUM 140 mmol/L (136-145); TOT PROT 7.8 g/dl (6.4-8.2)
--- NOTE | 2018-07-29 10:56 | EKG ---
Test Reason : Blood Pressure : / mmHG Vent. Rate : 057 BPM Atrial Rate : 057 BPM P-R Int : 236 ms QRS Dur : 102 ms QT Int : 432 ms P-R-T Axes : 060 -44 010 degrees QTc Int : 420 ms SINUS BRADYCARDIA WITH 1ST DEGREE A-V BLOCK LEFT AXIS DEVIATION ABNORMAL ECG WHEN COMPARED WITH ECG OF 26-FEB-2018 09:19, NO SIGNIFICANT CHANGE WAS FOUND Confirmed by IRMA NASSAR, KENYETTA ([id number]) on 07/29/2018 10:55:54 AM Referred By: Confirmed By:KENYETTA SOLIS MD
== END 2018-07-29 06:14 | disposition home or self-care (01) ==
LOC: JER 01:36
DX: R20.2 Paresthesia of skin (principal); I10 Essential (primary) hypertension; R25.1 Tremor, unspecified; R73.03 Prediabetes; R79.89 Other specified abnormal findings of blood chemistry; E07.89 Other specified disorders of thyroid
CPT/HCPCS: 36415; 70450-TC; 80053; 83735; 84100; 84443; 84484; 85027; 93005; 93010; 99281-25

== ENCOUNTER 2023-07-07 00:22 | Emergency (ER) | payer OTHER ==
[2023-07-07 00:33] VITALS: TEMP 97.8; BMI 32.9
[2023-07-07 01:42] LABS: BASO % 0.7 % (0-2.0); EOS % 4.7 % (0-4.5); HEMATOCRIT 38.9 % (32.4-45.2); HEMOGLOBIN 12.8 GM/dL (10.7-15.3); LYMPH % 28.1 % (8-40); MCH 29.7 pg (25.7-33.7); MCHC 32.8 g/dl (32.0-36.0); MEAN CELL VOLUME 90.5 fl (80-96); MEAN PLT VOLUME 9.5 fl (7.5-11.1); MONO % 12.6 % (3.8-10.2); NEUT % 53.9 % (42.8-82.8); PLATELET COUNT 179 10^3/uL (134-434); RDW 14.3 % (11.6-15.6); WHITE BLOOD COUNT 5.5 K/mm3 (4.0-10.0)
[2023-07-07 02:01] LABS: POTASSIUM 4.2 mmol/L (3.5-5.1)
[2023-07-07 02:03] LABS: ALBUMIN 3.5 g/dl (3.4-5.0); CALCIUM 9.4 mg/dL (8.5-10.1)
[2023-07-07 02:04] LABS: BLOOD UREA NITROGEN 22.3 mg/dL (7-18); MAGNESIUM 1.9 mg/dL (1.8-2.4)
[2023-07-07 02:08] LABS: BILIRUBIN,TOTAL 0.6 mg/dL (0.2-1); TOT PROT 7.8 g/dl (6.4-8.2)
[2023-07-07 03:48] VITALS: BP 137/98; PULSE 76; RESP 19
== END 2023-07-07 03:57 | disposition home or self-care (01) ==
LOC: JER 00:22
DX: R51.9 Headache, unspecified (principal); M79.641 Pain in right hand; Z20.822 Contact with and (suspected) exposure to COVID-19
CPT/HCPCS: 0241U-QW; 36415; 70450-TC; 80053; 83735; 84439; 84443; 84484; 85025; 93005; 93010; 99285-25

== ENCOUNTER 2024-05-26 22:22 | Emergency (ER) | payer OTHER ==
[2024-05-26 22:29] VITALS: BP 164/80; PULSE 83; RESP 20; TEMP 98.5; BMI 31.8
[2024-05-26] MEDS ORDERED: diazePAM 2 MG TABLET ONE (23:22)
[2024-05-26] MEDS ORDERED: ACETAMINOPHEN INJECTION 100 ML ONE (23:23)
[2024-05-26] MEDS ORDERED: LIDOCAINE 4% PATCH TP ONE (23:23)
[2024-05-26] MEDS ORDERED: METOCLOPRAMIDE HCL INJECTION 10 MG/2 ML VIAL ONE (23:23)
[2024-05-26] MEDS: METOCLOPRAMIDE HCL INJECTION 10 MG/2 ML VIAL IVPB ONE (23:51)
[2024-05-26] MEDS: ACETAMINOPHEN 1000 MG/100 ML BAG IVPB ONE (23:51)
[2024-05-26] MEDS: LIDOCAINE 4% PATCH TP ONE (23:51)
[2024-05-26] MEDS: diazePAM 2 MG TABLET PO ONE ×2 (23:52)
[2024-05-26] MEDS: LIDOCAINE PATCH REMOVAL MC SCH (23:52)
[2024-05-26 23:56] LABS: EOS % 2.5 % (0-4.5); HEMATOCRIT 40.8 % (32.4-45.2); HEMOGLOBIN 13.3 GM/dL (10.7-15.3); LYMPH % 17.2 % (8-40); MCH 29.4 pg (25.7-33.7); MCHC 32.5 g/dl (32.0-36.0); MEAN CELL VOLUME 90.4 fl (80-96); MEAN PLT VOLUME 9.3 fl (7.5-11.1); MONO % 11.1 % (3.8-10.2); NEUT % 68.2 % (42.8-82.8); PLATELET COUNT 176 10^3/uL (134-434); RBC 4.51 M/mm3 (3.60-5.2); RDW 14.2 % (11.6-15.6); WHITE BLOOD COUNT 6.9 K/mm3 (4.0-10.0)
[2024-05-27 00:20] LABS: POTASSIUM 4.4 mmol/L (3.5-5.1)
[2024-05-27 00:22] LABS: CALCIUM 9.9 mg/dL (8.5-10.1)
[2024-05-27 00:23] LABS: ALBUMIN 3.5 g/dl (3.4-5.0); BLOOD UREA NITROGEN 20.4 mg/dL (7-18)
[2024-05-27 00:26] LABS: CREATININE 1.1 mg/dL (0.55-1.3)
[2024-05-27 00:27] LABS: BILIRUBIN,TOTAL 0.7 mg/dL (0.2-1)
[2024-05-27 00:28] LABS: TOT PROT 8.2 g/dl (6.4-8.2)
[2024-05-27] MEDS ORDERED: KETOROLAC TROMETHAMINE 15 MG/ML VIAL ONE (01:07)
[2024-05-27] MEDS: KETOROLAC TROMETHAMINE 15 MG/ML VIAL IVPUSH ONE (01:15)
== END 2024-05-27 01:57 | disposition home or self-care (01) ==
LOC: JER 22:22
PROC: 3E033NZ Introduction of Analgesics, Hypnotics, Sedatives into Peripheral Vein, Percutaneous Approach (ICD-10-PCS; principal; 2024-05-26)
PROC: 3E033GC Introduction of Other Therapeutic Substance into Peripheral Vein, Percutaneous Approach (ICD-10-PCS; 2024-05-26)
PROC: 3E033GC Introduction of Other Therapeutic Substance into Peripheral Vein, Percutaneous Approach (ICD-10-PCS; 2024-05-27)
DX: R51.9 Headache, unspecified (principal); M54.2 Cervicalgia
CPT/HCPCS: 36415; 80053; 85025; 93005; 93010; 99284-25; J0131